=== PATIENT | female | born 1990 | race Caucasian/White ===

== ENCOUNTER 2020-08-02 12:20 | Emergency (ER) | payer MEDICAID ==
[~2020-08-02] VITALS: Ht 160 cm; Wt 83.0 kg
[~2020-08-02 12:20] MED LIST: DORZOLAMIDE HCL10 ML; MOT600 PO; XALATAN2.5 ML OP
[2020-08-02 12:29] VITALS: BP 142/92; Ht 160 cm; Wt 83.0 kg
== END 2020-08-02 13:47 | disposition home or self-care (01) ==
LOC: ED 12:20
DX: G43.909 Migraine, unspecified, not intractable, without status migrainosus (principal); Z98.890 Other specified postprocedural states; Z86.69 Personal history of other diseases of the nervous system and sense organs; Z90.49 Acquired absence of other specified parts of digestive tract